=== PATIENT | male | born 1945 | race Caucasian/White ===

== ENCOUNTER 2017-01-10 20:57 | Emergency (ER) | payer MEDICARE, OTHER ==
[~2017-01-10] VITALS: Ht 172.7 cm; Wt 70.3 kg
[2017-01-10] MEDS ORDERED: Solu-MEDROL 125mg Inj IVP ONE (21:15)
[2017-01-10] MEDS ORDERED: DuoNeb 0.5-3(2.5)mg/3ml neb HHN ONE (21:15)
[2017-01-10] MEDS ORDERED: Aspirin Baby 81mg ORAL ONE (21:30)
[2017-01-10 21:47] VITALS: BP 1/1
[2017-01-10 21:48] VITALS: BP 1/1
--- NOTE | 2017-01-11 03:05 | Emergency Room Report ---
History of Present Illness General Chief Complaint: Chest Pain Source: Patient Present Illness HPI Patient is a 71-year-old male who presented after increased difficulty breathing as well as chest pain. Patient reported having had gradual onset of symptoms. Patient prior history of COPD as well as cardiac bypass surgery. The patient denied any fever. He reported having increased cough and difficulty breathing. Patient stated that he having increased chest tightness. Allergies: Coded Allergies: No Known Allergies (Unverified , 01/10/17) Patient History Past Medical History: see triage record Reviewed Nursing Documentation: PMH: Agreed, PSxH: Agreed Nursing Documentation-PMH Hx Cardiac Problems: Yes - CAD, ischemic cardiomyopathy Hx COPD: Yes Hx Diabetes: Yes Hx Cancer: Yes - Upper lobe right lung, hypoxia, SCC of lung Review of Systems All Other Systems: negative except mentioned in HPI Physical Exam Vital Signs Date Time Temp Pulse Resp B/P Pulse Ox O2 Delivery O2 Flow Rate FiO2 01/10/17 21:04 97.3 106 14 153/77 94 Room Air Sp02 EP Interpretation: reviewed, normal General Appearance: normal inspection, alert, GCS 15, mild distress Head: atraumatic ENT: normal ENT inspection, hearing grossly normal, normal voice Neck: normal inspection, full range of motion, supple, no bony tend Respiratory: normal inspection, no respiratory distress, no retraction, wheezing, expiration Cardiovascular #1: no edema, tachycardia Gastrointestinal: normal inspection, normal bowel sounds, non tender, soft, no guarding, no hernia Genitourinary: no CVA tenderness Neurologic: normal inspection, alert, oriented x3, responsive, welder manufacture III-XII nml as tested, motor weakness Psychiatric: normal inspection, judgement/insight normal, mood/affect normal Skin: normal inspection, normal color, no rash Medical Decision Making Diagnostic Impression: Primary Impression: Chest pain Additional Impressions: COPD exacerbation ACS (acute coronary syndrome) ER Course Patient presented for chest pain. Differential diagnosis included but was not limited to acute coronary syndrome, pulmonary embolism, pneumonia, aortic dissection, shingles, pneumothorax, aortic dissection, esophageal rupture, pericarditis. Because of complexity of patient's case laboratory testing and imaging studies were ordered. Patient was in the emergency department for a short period time. Patient was pending at breathing treatments and he had decided he wanted to leave the hospital. EKG interpreted by me showed sinus tachycardia with some lateral ST depression. The patient was advised risk benefits alternatives of leaving AGAINST MEDICAL ADVICE and he indicated understanding and all questions are answered patient still continued want to leave and signed AGAINST MEDICAL ADVICE. Despite risks including but not limited to disability and worsening of current lifestyle. Last Vital Signs Date Time Temp Pulse Resp B/P Pulse Ox O2 Delivery O2 Flow Rate FiO2 01/10/17 21:48 09/2201/10/17 21:47 24 01/10/17 21:04 97.3 106 94 Room Air Status: unchanged Disposition: AGAINST MEDICAL ADVICE Condition: Serious Referrals: NOT CHOSEN IPA/,REFERRING (PCP) Bashir Romero Jan 11, 2017 03:05
== END 2017-01-10 21:30 | disposition left against medical advice (07) ==
LOC: EMR 21:25
DX: R07.9 Chest pain, unspecified (principal); J44.1 Chronic obstructive pulmonary disease with (acute) exacerbation; I24.9 Acute ischemic heart disease, unspecified; E11.9 Type 2 diabetes mellitus without complications; Z85.118 Personal history of other malignant neoplasm of bronchus and lung
CPT/HCPCS: 93005; 99283

== ENCOUNTER 2019-12-10 11:33 | Emergency (ER) | payer MEDICARE, MEDICAID ==
[~2019-12-10] VITALS: Ht 170.2 cm; Wt 63.5 kg
[2019-12-10 11:50] VITALS: BP 131/81
[2019-12-10] MEDS ORDERED: Ipratropium 0.02% Inh Soln 2.5ml UD HHN ONE (12:00)
[2019-12-10] MEDS ORDERED: Solu-MEDROL 125mg Inj IVP ONE (12:00)
[2019-12-10] MEDS ORDERED: Albuterol ud Inhalation HHN ONE (12:00)
[2019-12-10] MEDS ORDERED: Tetanus/Diptheria/Pertussis IM ONE (12:00)
[2019-12-10] MEDS ORDERED: LORazepam Inj 2mg/ml 1ml IV ONE (12:30)
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
--- NOTE | 2019-12-10 13:30 | Diagnostic Imaging Report ---
Indication: Right hand pain Technique: 3 views right hand Comparison: none Findings: No acute fractures. No dislocations. The joint spaces are preserved. Impression: Negative
[2019-12-10] MEDS ORDERED: Lidocaine 1% Plain 30 ml INJ ONE ×2 (13:40→13:45)
[2019-12-10] MEDS ORDERED: ALBUTEROL SULF8.5 GM INH (14:56)
[2019-12-10] MEDS ORDERED: PREDNISONE20 MG ORAL (14:56)
[2019-12-10] MEDS ORDERED: ACETAMINOPHEN-1 EAC1 ORAL (14:56)
[2019-12-10] MEDS ORDERED: AMOXICILLIN500 MG ORAL (14:56)
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
[2019-12-10 16:00] VITALS: BP 136/78
== END 2019-12-10 16:02 | disposition home or self-care (01) ==
LOC: EMR 12:43
DX: S61.210A Laceration without foreign body of right index finger without damage to nail, initial encounter (principal); J44.1 Chronic obstructive pulmonary disease with (acute) exacerbation; E11.9 Type 2 diabetes mellitus without complications; I25.10 Atherosclerotic heart disease of native coronary artery without angina pectoris; I10 Essential (primary) hypertension; V03.99XA Pedestrian with other conveyance injured in collision with car, pick-up truck or van, unspecified whether traffic or nontraffic accident, initial encounter; Y92.410 Unspecified street and highway as the place of occurrence of the external cause; Z85.46 Personal history of malignant neoplasm of prostate; Z95.1 Presence of aortocoronary bypass graft
CPT/HCPCS: 70450; 73130; 90471; 90715; 96374; 96375; 99284; J2001; J2930